=== PATIENT | female | born 1985 | race Caucasian/White ===

== ENCOUNTER → 2022-02-19 09:44 | Outpatient (CLI) | payer OTHER, SELFPAY ==
--- NOTE | ~2022-02-19 | XR_ITS ---
EXAMINATION: XR chest 2V Exam Date/Time: 02/19/2022 9:52 CDT HISTORY: f/u to recent pneumothorax upper rt side 3 days ago Comparison: 12/13/2016. RESULT: Lines, tubes, and devices: Left chest pacer with intact leads. Fracture sternotomy wires, and stable position. Mediastinal clips and ostial markers. Lungs and pleura: Clear. No pneumothorax. Cardiomediastinal silhouette: Stable. Other: No acute osseous or upper abdominal finding. IMPRESSION: No acute cardiopulmonary process. Reviewed, dictated and finalized at location K.
== END ==
PROVIDERS: PCP Family Medicine; Visit Provider Family Medicine
DX: J93.9 Pneumothorax, unspecified (principal)
CPT/HCPCS: 71046

== ENCOUNTER 2022-03-08 12:38 | Outpatient (CLI) | payer OTHER, SELFPAY ==
--- NOTE | ~2022-03-08 | CT_ITS ---
EXAMINATION: CTA chest PE protocol DATE: 03/08/2022 13:57 CDT INDICATION: Abnormal coagulation profile TECHNIQUE: Computed tomographic angiography (CTA) of the chest was performed with 100 mL Omnipaque-35 0 intravenous contrast. The dose-length product was 361.43 mGy-cm. Maximum intensity projection 3D-re constructions of the aorta and other arteries were constructed by the technologist on a separate work station. Automated exposure control and iterative reconstruction technique were employed. COMPARISON: CT dated 12/13/2016. FINDINGS: Saccular aneurysm of the aortic arch measuring up to 4.7 cm. No evidence for pulmonary embo lism. No evidence for aortic dissection. Cardiomegaly. No significant pleural or pericardial effusion . The upper abdomen is unremarkable. No endobronchial lesions. No focal airspace consolidation. No babcock spicious pulmonary nodules or masses. No acute osseous abnormality. Status post median sternotomy. IMPRESSION: 1. 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 2: Cardiomegaly. Reviewed, dictated and finalized at location A. IMPRESSION: 1. Saccular aneurysm of the ascending thoracic aorta involving the proximal aor tic arch measuring up to 4.7 cm. 2: Cardiomegaly.
== END 2022-03-08 12:39 | disposition home or self-care (01) ==
PROVIDERS: PCP Family Medicine; Visit Provider Family Medicine
DX: R06.09 Other forms of dyspnea (principal); R79.1 Abnormal coagulation profile; I51.7 Cardiomegaly; I71.2 Thoracic aortic aneurysm, without rupture
CPT/HCPCS: 71275; Q9967

== ENCOUNTER 2024-01-26 15:11 | Emergency (ER) | payer OTHER, SELFPAY ==
[2024-01-26] VITALS (10 sets, daily range): BP systolic 107–158; BP diastolic 72–83; PULSE 76–95; RESP 15–20; TEMP 36.6–36.8; O2SAT 98–100
--- NOTE | ~2024-01-26 | XR_ITS ---
EXAMINATION: XR chest 1V portable Exam Date/Time: 01/26/2024 15:45 CDT HISTORY: SOB, HX PACEMAKER IN 2015 Comparison: 02/19/2022. RESULT: Lines, tubes, and devices: Left chest pacer with intact leads. Multiple sternotomy wires. A fracture d wire remains in stable position. Mediastinal clips and ostial markers. Lungs and pleura: Clear. Cardiomediastinal silhouette: Stable. Other: No acute osseous or upper abdominal finding. IMPRESSION: No acute cardiopulmonary process. Reviewed, dictated and finalized at location K.
--- NOTE | ~2024-01-26 | CT_ITS ---
EXAMINATION: CTA chest PE abdomen pel DATE: 01/26/2024 20:08 INDICATION: cp, sob, nausea, transaminitis . TECHNIQUE: Computed tomography (CT) of the chest, abdomen, and pelvis was performed with 100 mL Omnip aque-350 intravenous contrast, in the arterial phase. Automated exposure control and iterative recons truction technique were employed. The dose-length product was 1235.86 mGy-cm. COMPARISON: X-ray chest, same date; CTA chest 03/08/2022. FINDINGS: CHEST: Thoracic aorta: Presumed landing site of an ascending aortic graft in the distal ascending aorta, jus t proximal to a fusiform region of ectasia measuring up to 4.7 cm that also involving the origins of the brachiocephalic and left common carotid arteries. No dissection. Lung parenchyma and airways: Lungs and airways are clear. Thoracic inlet, axillae and chest wall: No thyroid or soft tissue mass. No axillary lymphadenopathy. Left chest pacer with intact leads terminating in the right atrium, right ventricle, and coronary sin us. Mediastinum: No mass or lymphadenopathy. Heart and pericardium: Mild cardiomegaly. Aortic valve replacement. Coronary artery calcifications: Absent. Pleura: No effusion or mass. Thoracic bones: No acute osseous finding in the chest. ABDOMEN/PELVIS: Liver: Enlarged. Diffuse fatty infiltration. Biliary/Gallbladder: Gallbladder is normal. No bile duct dilation. Pancreas: No mass or duct dilation. Spleen: Normal. Adrenals:No mass. Kidneys: No suspicious mass, obstructing stone, or hydronephrosis. GI tract: No small or large bowel dilation. Normal appendix. Mesentery/Peritoneum: No ascites, mass, or free air. Retroperitoneum: No mass Pelvis: Mostly empty urinary bladder. Uterine fibroids. Normal bilateral ovaries. Right corpus luteal cyst. Soft Tissues: Soft tissues and body wall unremarkable. Abdominopelvic bones: No acute osseous finding in the abdomen/pelvis. 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 No dissection. Hepatomegaly with steatosis. Reviewed, dictated and finalized at location K.
--- NOTE | 2024-01-26 15:13 | ECG_ITS ---
Test Date: 2024-01-26 15:21:22 Measurements Intervals [place] Rate: 78 P: 46 WA: 153 QRS: 107 QRSD: 131 T: 120 QT: 417 QTc: 475 Interpretive Statements ELECTRONIC VENTRICULAR PACEMAKER No previous ECG available for comparison Electronically Signed On 01-27-2024 09:23:27 CDT by Mendoza Gallegos M.D.
[2024-01-26 17:49] LABS: Basophils Percent Auto 0.4 % (0.2-1.2); Eosinophils Absolute Auto 0.1 K/mm3 (0-0.3); Eosinophils Percent Auto 0.7 % (0-4.4); Hematocrit 38.1 % (37.0-47.0); Immature Granulocyte Absolute 0.03 K/mm3 (0.00-0.031); Immature Granulocyte Percent A 0.4 % (0-0.5); Lymphocytes Absolute Auto 1.87 K/mm3 (0.9-3.2); Lymphocytes Percent Auto 22.6 % (18.3-44.2); Mean Corpuscular HGB Conc 34.1 g/dl (32-36); Mean Corpuscular Hemoglobin 30.7 pg (26-34); Mean Corpuscular Volume 90.1 fl (80-100); Mean Platelet Volume 9.8 fl (7.4-10.4); Monocytes Absolute Auto 0.8 K/mm3 (0.1-0.6); Monocytes Percent Auto 9.9 % (2.6-8.5); Neutrophils Absolute Auto 5.5 K/mm3 (1.3-6.7); Platelet Count Result 232 k/mm3 (150-375); Red Blood Count 4.23 M/mm3 (4.2-5.4); Red Cell Distribution Width 12.8 % (11.5-14.5); White Blood Count 8.3 K/mm3 (4.5-10.0)
[2024-01-26 17:59] LABS: Alanine Aminotransferase 53 U/L (6-35); Albumin Level 4.2 g/dL (3.5-5.1); Alkaline Phosphatase 58 U/L (38-126); Anion Gap 11 mmol/L (4-12); Aspartate Amino Transferase 40 U/L (14-36); Bilirubin,Total 0.4 mg/dL (0.2-1.3); Blood Urea Nitrogen 17 mg/dL (7-17); Calcium 9.2 mg/dL (8.4-10.2); Carbon Dioxide 22 mmol/L (22-30); Chloride 104 mmol/L (98-107); Estimated CRCL calculation 100 ml/min; Estimated Glomerular Filt Rate > 60; Glucose 89 mg/dL (65-110); Lipase 166 U/L (23-300); Potassium 3.8 mmol/L (3.4-5.0); Sodium 137 mmol/L (137-145)
[2024-01-26 18:08] LABS: Partial Thromboplastin Time 26.6 Seconds (22.3-36.8); Prothrombin Time 13.2 Seconds (11.1-14.7)
--- NOTE | 2024-01-26 18:11 | ED.SOB ---
HPI - SOB/Dyspnea General Chief Complaint: Shortness of Breath/Dyspnea Stated Complaint: I think I have a collapsed lung Time Seen by Provider: 01/26/24 17:16 Source: patient Mode of arrival: ambulatory Limitations: no limitations History of Present Illness HPI Narrative: This is a 38-year-old female that presents to the emergency department for right-sided chest pain. Reports she was just seated watching her daughter's lesson. She did started to develop right-sided shoulder pain and nausea. She has persisted to have right-sided chest pain. Worse with deep breathing. Also reports a mild cough. Denies fevers, vomiting. Related Data Home Medications Medication Instructions Recorded Confirmed aspirin 81 mg tablet,delayed 81 mg PO DAILY 09/22/23 12/08/23 release buspirone 10 mg tablet 10 mg PO BID 09/22/23 12/08/23 cetirizine 10 mg tablet (Zyrtec) 10 mg PO DAILY PRN 09/22/23 12/08/23 famotidine 20 mg tablet 20 mg PO DAILY 09/22/23 12/08/23 fluticasone propionate 50 2 spray intranasal DAILY 09/22/23 12/08/23 mcg/actuation nasal spray,suspension (Flonase Allergy Relief) galcanezumab-gnlm 120 mg/mL 120 mg subcut MONTHLY 09/22/23 12/08/23 subcutaneous pen injector (Emgality Pen) melatonin PO 09/22/23 12/08/23 ubrogepant 100 mg tablet (Ubrelvy) 100 mg PO ONCE 09/22/23 12/08/23 Allergies Allergy/AdvReac Type Severity Reaction Status Date / Time No Known Allergies Allergy Verified 01/26/24 15:16 Review of Systems Review of Systems: CONSTITUTIONAL: Denies fever CARDIOVASCULAR: Reports chest pain. Denies edema. RESPIRATORY: Reports cough and dyspnea. GASTROINTESTINAL: Reports nausea. Denies abdominal pain, vomiting, or diarrhea. All systems reviewed & are unremarkable except as noted in HPI and below PMFSH Past Medical History Medical History (Updated 01/26/24 @ 21:42 by Toyin Castillo PA-C) Anxiety GERD (gastroesophageal reflux disease) Heart disease Heart murmur Lesion of skin of face Migraines Nodule of finger Otitis media of left ear Pacemaker Seasonal allergies Spontaneous pneumothorax 2007 Surgical History Surgical History History of heart surgery Hx of aortic valve replacement Hx of ascending aorta repair [place] teeth removed Family History Family History Father Depression Sibling Hypertension Depression Grandparent Breast cancer Hypertension Grandparent Breast cancer Social History Social History Smoking status: Never smoker Alcohol intake: current Alcohol use details: Wine- Occasionally Substance use: never Exam Narrative: GENERAL: Well-appearing, well-nourished, and in no acute distress. HEAD: Normocephalic, atraumatic. EYES: EOMI. ENT: Nares clear, no rhinorrhea or epistaxis. Mucous membranes moist. Oropharynx without tonsillar hypertrophy exudate or other lesions. NECK: Supple. No adenopathy or masses. No JVD CHEST: Clear to auscultation. No respiratory distress. No wheezes rales or rhonchi HEART: Regular rate and rhythm. Normal peripheral pulses. ABDOMEN: Soft, nontender, nondistended, normal active bowel sounds. EXTREMITIES: Normal range of motion. No edema. SKIN: Warm, dry, no rash. NEURO: No focal deficits. Alert and oriented x3. PSYCH: Normal mood and affect Course Course Emergency Course: Patient updated on her workup. Reports feeling much better, but is still have mild right sided chest discomfort. I did recommend further evaluation with 3 hour troponin. She does not wish to stay for any further evaluation or management. She was encouraged to have close follow up with her sieve maker Vital Signs Vital signs: Vital Signs Temperature 98.2 F 01/26/24 15: Pulse Rate 88 01/26/24 15:13 Respiratory Rate 20 01/26/24 15: Blood Pressure 158/83 H 01/25
[2024-01-26 18:31] LABS: D Dimer 0.46 ug/mL (<0.48)
[2024-01-26] MEDS: ONDANSETRON INJ 4 MG/2 ML VIAL IV PUSH (18:32)
[2024-01-26] MEDS: MORPHINE SULFATE (*CRX) 4 MG/ML INJ IV PUSH (18:33)
[2024-01-26 18:37] LABS: Troponin I < 0.012 ng/mL (0.000-0.034)
[2024-01-26 18:57] LABS: Influenza A QL RT-PCR Negative (Negative); Influenza B QL RT-PCR Negative (Negative); RSV RNA, RT-PCR Negative (Negative); SARS-CoV-2 RNA PCR Negative (Negative)
[2024-01-26 19:50] LABS: BEDSIDEPREGUCG Negative
== END 2024-01-26 22:11 | disposition home or self-care (01) ==
PROVIDERS: Emergency Medicine; Emergency Provider Physician Assistant; PCP Nurse Practitioner Family
DX: R07.9 Chest pain, unspecified (principal); Z20.822 Contact with and (suspected) exposure to COVID-19; I51.9 Heart disease, unspecified; K21.9 Gastro-esophageal reflux disease without esophagitis; F41.9 Anxiety disorder, unspecified; Z95.0 Presence of cardiac pacemaker; Z79.899 Other long term (current) drug therapy; Z95.2 Presence of prosthetic heart valve; I77.819 Aortic ectasia, unspecified site; K76.0 Fatty (change of) liver, not elsewhere classified
CPT/HCPCS: 36415; 71045; 71275; 74177; 80053; 81025; 83690; 84484; 85025; 85380; 85610; 85730; 87637; 93005; 96374; 96375; 99284; J2270; J2405; Q9967